=== PATIENT | male | born 1960 | race Caucasian/White ===

== ENCOUNTER → 2024-04-08 | Outpatient (CLI) | payer MEDICARE, MEDICAID, SELFPAY ==
--- NOTE | 2024-04-08 13:30 | XR_ITS ---
Examination: CT chest with intravenous contrast CT abdomen with intravenous contrast CT pelvis with intravenous contrast CT chest without intravenous contrast CT abdomen without intravenous contrast CT pelvis without intravenous contrast 2-D coronal and sagittal reconstructions Time of exam: April 08, 2024 1407 hours INDICATIONS: Diagnosis malignant neoplasm bladder, restaging CTDI: vol (mGy) : 12.92 DLP: (mGycm): 970 Technique: Multiple axial images of the chest, abdomen and pelvis with intravenous contrast, 3.0 mm slice thickness. Images obtained pre and post intravenous injection Isovue 370 60 cc. 2-D sagittal and coronal reconstructions. Low dose protocols were performed. One or more of the following dose reduction techniques were used; automated exposure control, adjustment of the mA and/or KV according to patient size, use of iterative reconstruction technique. Findings: Thoracic aortic calcification no aneurysmal dilatation Pulmonary artery segments are not enlarged Heavy calcification left anterior descending left circumflex right coronary arteries No paratracheal tracheobronchial or bronchopulmonary adenopathy 5 mm pulmonary nodule left upper lobe image 86 10 mm pulmonary nodule right upper lobe image 147 3 mm pulmonary nodule right lower lobe image 162 5 mm pulmonary nodule right upper lobe image 175 2 mm pulmonary nodule right midlung image 205 4 mm pulmonary nodule right middle lobe image 211 3 mm pulmonary nodule lingular segment image 42 Lateral right lobe fluid in air containing mass 8.4 x 5.9 x 8.8 cm, differential would include abscess Smaller fluid collection at the anterior lower margin of the liver 5.2 x 2.0 cm Fluid collection in the gallbladder fossa 5.4 x 4.4 cm No pancreatic or splenic mass No renal or ureteral calculi Right diverting probable urostomy No bowel obstruction Urinary bladder not visualized Lumbar fusions L3-S1 IMPRESSION: Multiple pulmonary nodules, metastatic pulmonary nodular disease pattern, suggest continued 6 month follow-up CT chest Liver fluid collections most consistent with abscesses but clinical correlation advised Fluid collection in the gallbladder fossa region also clinical correlation advised
== END | disposition home or self-care (01) ==
PROVIDERS: PCP Physician Assistant; Referring Provider Internal Medicine Hematology; Visit Provider Internal Medicine Hematology
DX: R91.8 Other nonspecific abnormal finding of lung field (principal); C67.9 Malignant neoplasm of bladder, unspecified
CPT/HCPCS: 71270; 74178; A4649; Q9967